=== PATIENT | female | born 1960 | race Caucasian/White ===

== ENCOUNTER → 2016-05-27 | Outpatient (CLI) | payer OTHER ==
[~2016-05-27] MED LIST: BENZ100C18 PO; HYDR-5688 PO; HYDR25TA4 PO; LEVO-366 PO; LEVO50TA6 PO; LEVO75TA5 PO; LEVO88TA PO; LISI-526 PO; LISI-725 PO; POTA-327 PO; POTA10CA28 PO
[2016-05-27 14:44] LABS: URINE APPEARANCE CLEAR (CLEAR); URINE BILIRUBIN NEG (NEG); URINE COLOR YELLOW; URINE NITRITE NEG (NEG); URINE PH 6.5 (4.5-7.5); UROBILINOGEN NEG (NEG)
[2016-05-27 14:50] LABS: MANUAL MICROSCOPIC REQUIRED? NO; REVIEW REQ? NO
[2016-05-28 06:00] LABS: ESTIMATED AVERAGE GLUCOSE 108 mg/dl; HA1C FLAG Normal (Normal)
== END | disposition home or self-care (01) ==
LOC: C.LAB1850 12:35
PROVIDERS: ATTEND Nurse Practitioner Adult Health
DX: N93.8 Other specified abnormal uterine and vaginal bleeding (principal); R73.01 Impaired fasting glucose; Z11.59 Encounter for screening for other viral diseases; R31.29 Other microscopic hematuria

== ENCOUNTER → 2016-06-21 | Day surgery (SDC) | payer OTHER ==
[2016-05-30 14:32] VITALS: Ht 175.3 cm; Wt 91.8 kg
[~2016-06-21] VITALS: Ht 175.3 cm; Wt 91.8 kg
[~2016-06-21] MED LIST changes: +ATROPINE SULFATE 0.1 MG/ML 5ML SYR IV PRN; +BUPIVACAINE/EPINEPHRINE 0.5% MPF 1:200,000 30 ML VIAL ONE; +CEFAZOLIN 2000 MG/60 ML D5W IV SCH; +CLINDAMYCIN 600MG IV SCH; +DEXAMETHASONE SOD INJ 4 MG/ML VIAL ONE; +EpHEDrine SULFATE INJ 50 MG/ML AMP IV PRN; +FENTANYL CITRATE INJ 50 MCG/1 ML 2 ML VIAL ONE; +HYDROCODONE/ACETAMOPHEN 5/325MG TAB PO PRN; +HYDROmorphone INJ 0.5 MG/0.5 ML SYR ONE; +IBUPROFEN 600 MG TAB PO PRN; +LACTATED RINGER'S 1000ML 1,000 ML IV SCH; -LEVO50TA6 PO; +LIDOCAINE HCL 2% 2 ML VIAL (20MG/ML) ONE; -LISI-725 PO; +MIDAZOLAM HCL 1 MG/ML 2ML VIAL ONE; +NURSING VERBAL MED ORDER ONE; +ONDANSETRON INJ 2 MG/ML 2 ML VIAL IV PRN; +ONDANSETRON INJ 2 MG/ML 2 ML VIAL ONE; +PROPOFOL IV EMULSION 10 MG/ML 20 ML VIAL IV ONE; +SODIUM CHLORIDE 0.9% 1000ML 1,000 ML IV SCH
--- NOTE | 2016-06-21 06:53 | History & Physical Bridge Note ---
H&P Re-Evaluation Bridge Note: I have examined the patient, reviewed the History & Physical and in the interval since the performance of the History & Physical I have noted the following changes of clinical significance: No changes noted
--- NOTE | 2016-06-21 08:05 | Discharge Instructions-SurgCtr ---
Discharge Instructions Date of Service Jun 21, 2016. Visit Reason for Visit: Right Inguinal Region Mass Discharge Discharge Diagnosis / Problem: groin lipoma Discharge Goals Goal(s): Decrease discomfort, Diagnostic testing Activity Recommendations Activity Limitations: resume your previous activity Exercise/Sports Limitations: as tolerated May Resume Sexual Activity: when tolerated Shower/Bathe: no limitations Anesthesia . Post Anesthesia Instructions: If you have had General Anesthesia or IV Sedation: * Do not drive today. * Resume driving when surgeon permits. * Do not make important decisions or sign legal documents today. * Call surgeon for: 1. Temperature elevations greater than 101 degrees F. 2. Uncontrollable pain. 3. Excessive bleeding. 4. Persistent nausea and vomiting. 5. Medication intolerance (nausea, vomiting or rash). * For nausea and vomiting use only clear liquids such as: tea, soda, bouillon until nausea subsides, then gradually increase diet as tolerated. * If you have any concerns or questions, call your surgeon's office. If physician is unavailable and it is an emergency, call 911 or go to the nearest emergency room. . Diet Recommendations Home Diet: no limitations Procedures Procedures Performed: Right Groin Mass Excision Pending Studies Studies pending at discharge: yes List of pending studies: path report Medical Emergencies . Who to Call and When: Medical Emergencies: If at any time you feel your situation is an emergency, please call 911 immediately. . Non-Emergent Contact Non-Emergency issues call your: Primary Care Provider, Surgeon Call Non-Emergent contact if: temperature is above 101, wound has increased drainage, wound has increased redness, wound has increased pain . . "Provider Documentation" section prepared by Fausto Mendoza.
--- NOTE | 2016-06-21 08:10 | Medical Student: [facility] ---
Immediate Operative Summary Operative Date Jun 21, 2016. Pre-Operative Diagnosis right groin mass Post-Operative Diagnosis same as above Procedure(s) Performed excision of right groin mass Surgeon Dr. Mendoza Health Program Manager Surgeon(s) none Findings lipoma in right groin area, specifically the right hypogastric region of abd Specimens A. lipoma Anesthesia general Complication(s) None Disposition Recovery Room / PACU
[2016-06-21] MEDS: FENTANYL CITRATE INJ 50 MCG/1 ML 2 ML VIAL IV PRN ×2 (08:16→08:21)
[2016-06-21] MEDS: HYDROmorphone INJ 1 MG/ML SYR IV PRN ×2 (08:27→08:38)
--- NOTE | 2016-06-21 08:27 | OPERATIVE REPORT ---
DATE OF OPERATION: 06/21/2016 PREOPERATIVE DIAGNOSIS: Right groin mass. POSTOPERATIVE DIAGNOSIS: Large lipoma of the right groin on the mons pubis. PROCEDURE: Excision of large groin lipoma with primary closure. SURGEON: Dr. Mendoza. ESTIMATED BLOOD LOSS: 5 mL. COMPLICATIONS: No immediate. ANESTHESIA: General laryngeal mask airway. OPERATIVE NOTE: After informed consent was obtained, the patient was taken to the operating suite, placed in supine position. After successful placement of laryngeal mask airway the groin was shaved and sterilely prepped and draped in usual fashion. A horizontal incision directly over the palpable mass was made with 15 blade scalpel and carried down through the soft tissue using electrocautery. We immediately encountered a large lipoma and mass in the superficial tissue. I was able to use primarily blunt dissection and small amounts of cautery to completely come around the capsule and excise the lipoma in 1 large piece. It measured approximately 4 cm. We controlled any bleeding points using electrocautery. We thoroughly irrigated the wound and closed it in multiple layers using 2-0 Vicryl for deep layers, 3-0 Vicryl for mid layers and 4-0 Monocryl for the skin. Some Marcaine was injected around the area for postoperative analgesia and skin glue used as a dressing. The patient was awakened, extubated, and transferred to recovery in stable condition. I attest to the content of the Intraoperative Record and any orders documented therein. Any exceptio ns are noted below.
[2016-06-21 09:03] VITALS: TEMP 36.7
--- NOTE | 2016-06-21 09:28 | Anesthesiology Progress Note ---
Anesthesia Post Op Note Date & Time Jun 21, 2016 at 09:28 Vital Signs Pain Intensity: 5 Vital Signs Past 12 Hours Date Time Temp Pulse Resp B/P Pulse Ox O2 Delivery O2 Flow Rate FiO2 06/21/16 08:52 94 14 98 06/21/16 08:52 36.4 92 14 06/21/16 08:50 123/91 06/21/16 08:47 98 13 99 06/21/16 08:47 98 13 06/21/16 08:45 140/86 06/21/16 08:42 92 13 100 06/21/16 08:42 95 13 06/21/16 08:40 142/86 06/21/16 08:37 93 13 06/21/16 08:37 94 13 100 06/21/16 08:35 144/88 06/21/16 08:32 97 16 100 06/21/16 08:32 96 16 06/21/16 08:30 133/83 06/21/16 08:27 98 19 100 06/21/16 08:27 98 19 06/21/16 08:25 130/84 06/21/16 08:22 101 13 06/21/16 08:22 99 13 100 06/21/16 08:20 144/90 06/21/16 08:17 102 17 100 06/21/16 08:17 104 17 06/21/16 08:15 147/84 06/21/16 08:12 102 14 100 06/21/16 08:12 103 14 06/21/16 08:10 126/80 06/21/16 08:07 36.4 106 16 118/79 100 Mask 6 06/21/16 08:07 108 06/21/16 08:07 108 118/74 100 06/21/16 06:37 36.5 110 20 165/90 99 Room Air Notes Mental Status: alert / awake / arousable, participated in evaluation Pt Amnestic to Procedure: Yes Nausea / Vomiting: adequately controlled Pain: adequately controlled, improving with treatment Airway Patency, RR, SpO2: stable & adequate BP & HR: stable & adequate Hydration State: stable & adequate Anesthetic Complications: no major complications apparent
[2016-06-21 09:55] VITALS: BP 147/95; PULSE 93; O2SAT 98
== END | disposition home or self-care (01) ==
LOC: X.SURG 06:01
PROVIDERS: ATTEND Surgery
DX: D17.39 Benign lipomatous neoplasm of skin and subcutaneous tissue of other sites (principal); N93.8 Other specified abnormal uterine and vaginal bleeding; I10 Essential (primary) hypertension; E03.9 Hypothyroidism, unspecified; Z98.890 Other specified postprocedural states

== ENCOUNTER → 2016-06-28 | Outpatient (CLI) | payer OTHER ==
[~2016-06-28] MED LIST changes: -ATROPINE SULFATE 0.1 MG/ML 5ML SYR IV PRN; -BUPIVACAINE/EPINEPHRINE 0.5% MPF 1:200,000 30 ML VIAL ONE; -CEFAZOLIN 2000 MG/60 ML D5W IV SCH; -CLINDAMYCIN 600MG IV SCH; -DEXAMETHASONE SOD INJ 4 MG/ML VIAL ONE; -EpHEDrine SULFATE INJ 50 MG/ML AMP IV PRN; -FENTANYL CITRATE INJ 50 MCG/1 ML 2 ML VIAL ONE; -HYDROCODONE/ACETAMOPHEN 5/325MG TAB PO PRN; -HYDROmorphone INJ 0.5 MG/0.5 ML SYR ONE; -IBUPROFEN 600 MG TAB PO PRN; -LACTATED RINGER'S 1000ML 1,000 ML IV SCH; -LIDOCAINE HCL 2% 2 ML VIAL (20MG/ML) ONE; -MIDAZOLAM HCL 1 MG/ML 2ML VIAL ONE; -NURSING VERBAL MED ORDER ONE; -ONDANSETRON INJ 2 MG/ML 2 ML VIAL IV PRN; -ONDANSETRON INJ 2 MG/ML 2 ML VIAL ONE; -PROPOFOL IV EMULSION 10 MG/ML 20 ML VIAL IV ONE; -SODIUM CHLORIDE 0.9% 1000ML 1,000 ML IV SCH
== END | disposition home or self-care (01) ==
LOC: C.PAPS 10:41
PROVIDERS: ATTEND Obstetrics & Gynecology
DX: Z01.419 Encounter for gynecological examination (general) (routine) without abnormal findings (principal)

== ENCOUNTER → 2016-07-11 | Outpatient (CLI) | payer OTHER ==
[2016-07-11 15:12] LABS: HEMATOCRIT 40.7 % (37-47); MEAN CELL VOLUME 86.4 fL (80-100); MEAN CORPUSCULAR HEMOGLOBIN 29.9 pg (25-34); MEAN CORPUSCULAR HGB CONC 34.6 g/dl (32-36); MEAN PLATELET VOLUME 10.9 fL (7.4-10.4); PLATELET COUNT 226 K/uL (130-400); RED BLOOD COUNT 4.71 M/uL (4.2-5.4); WHITE BLOOD COUNT 7.72 K/uL (4.8-10.8)
== END | disposition home or self-care (01) ==
LOC: C.LAB1850 14:16
PROVIDERS: ATTEND Obstetrics & Gynecology
DX: N92.6 Irregular menstruation, unspecified (principal)

== ENCOUNTER → 2016-07-11 | Outpatient (CLI) | payer OTHER ==
--- NOTE | 2016-07-15 15:16 | MAMMOGRAPHY REPORT ---
BILATERAL DIGITAL SCREENING MAMMOGRAM TOMOSYNTHESIS WITH CAD: 07/11/2016 CLINICAL HISTORY: Routine screening. Patient has no complaints. TECHNIQUE: Breast tomosynthesis in addition to standard 2D mammography was performed. Current study was also evaluated with a Computer Aided Detection (CAD) system. COMPARISON: Comparison is made to exam dated: Outside mammograms dated 07/10/2007 and 04/10/2015. BREAST COMPOSITION: The tissue of both breasts is heterogeneously dense, which may obscure small ma sses. FINDINGS: No suspicious masses, calcifications, or areas of architectural distortion are noted in e ither breast. There has been no significant interval change compared to prior exams. Oval circumscr ibed benign-appearing mass within the right upper inner quadrant and lobulated mass in the left uppe r inner quadrant posteriorly are stable dating back to the 2007 exam and considered benign given tatiana g-term stability. Scattered bilateral benign-appearing calcifications are again noted. IMPRESSION: ACR BI-RADS CATEGORY 2: BENIGN There is no mammographic evidence of malignancy. A 1 year screening mammogram is recommended. The p atient will receive written notification of the results. Approximately 10% of breast cancers are not detected with mammography. A negative mammographic repor t should not delay biopsy if a clinically suggestive mass is present. Shirlene Delgado M.D. ah/:07/12/2016 16:25:23 Exercise Physiology Professor: Latia ORTIZ)(M), [facility] letter sent: Normal 1/2 BI-RADS Code: ACR BI-RADS Category 2: Benign
== END | disposition home or self-care (01) ==
LOC: C.MAMM 13:39
PROVIDERS: ATTEND Obstetrics & Gynecology
DX: Z12.31 Encounter for screening mammogram for malignant neoplasm of breast (principal)

== ENCOUNTER → 2016-09-11 | Day surgery (SDC) | payer OTHER ==
[2016-08-21 15:07] VITALS: Ht 170.2 cm; Wt 90.5 kg
[~2016-09-11] VITALS: Ht 170.2 cm; Wt 90.5 kg
[~2016-09-11] MED LIST changes: +ATROPINE SULFATE 0.1 MG/ML 5ML SYR IV PRN; +DEXAMETHASONE SOD INJ 4 MG/ML VIAL ONE; +FENTANYL CITRATE INJ 50 MCG/1 ML 2 ML VIAL IV PRN; +FENTANYL CITRATE INJ 50 MCG/1 ML 2 ML VIAL ONE; -HYDR-5688 PO; +KETOROLAC TROMETHAMINE 30 MG/ML VIAL IV. PRN; +KETOROLAC TROMETHAMINE 30 MG/ML VIAL ONE; +LABETALOL HCL IV 5 MG/ML 20ML IV ONE; +LABETALOL HCL IV 5 MG/ML 20ML IV PRN; +LACTATED RINGER'S 1000ML 1,000 ML IV SCH; -LEVO75TA5 PO; +LIDOCAINE HCL 2% 2 ML VIAL (20MG/ML) ONE; +MIDAZOLAM HCL 1 MG/ML 2ML VIAL ONE; +NURSING VERBAL MED ORDER ONE; +ONDANSETRON INJ 2 MG/ML 2 ML VIAL IV PRN; +ONDANSETRON INJ 2 MG/ML 2 ML VIAL ONE; +OXYCODONE/ACETAMINOPHEN 5-325 TAB PO PRN; +PHENYLEPHRINE HCL INJ 10 MG/ML VIAL ONE; +PROMETHAZINE HCL INJ 12.5 MG in SODIUM CHLORIDE 0.9% 50ML 50 ML IV PRN; +PROMETHAZINE HCL INJ 25 MG in SODIUM CHLORIDE 0.9% 50ML 50 ML IV PRN; +PROPOFOL IV EMULSION 10 MG/ML 20 ML VIAL IV ONE; +SODIUM CHLORIDE 0.9% 1000ML 1,000 ML IV SCH
--- NOTE | 2016-09-11 15:32 | [facility] Post Operative Brief Note ---
Immediate Operative Summary Operative Date Sep 11, 2016. Pre-Operative Diagnosis Dysfunctional Uterine Bleeding Post-Operative Diagnosis same Procedure(s) Performed Dilatation And Curettage, Hysteroscopy, Polypectomy Surgeon Dr. Heather Mcwilliams Automotive Project Engineer Surgeon(s) SHAKIR Brady Estimated Blood Loss less than 5cc Findings Large posterior endometrial polyp, small anterior polyp. Bilateral tubal ostia visualized. Specimens A. Endometrial Curettings Drains Bladder drained prior to procedure Anesthesia General Complication(s) None Disposition Recovery Room / PACU
--- NOTE | 2016-09-11 15:39 | Discharge Instructions-SurgCtr ---
Discharge Instructions Date of Service Sep 11, 2016. Visit Reason for Visit: Dysfunctional Uterine Bleeding Discharge Discharge Diagnosis / Problem: Endometrial polyps Discharge Goals Goal(s): Diagnostic testing, Therapeutic intervention Activity Recommendations Activity Limitations: per Instructions/Follow-up section Anesthesia . Post Anesthesia Instructions: If you have had General Anesthesia or IV Sedation: * Do not drive today. * Resume driving when surgeon permits. * Do not make important decisions or sign legal documents today. * Call surgeon for: 1. Temperature elevations greater than 101 degrees F. 2. Uncontrollable pain. 3. Excessive bleeding. 4. Persistent nausea and vomiting. 5. Medication intolerance (nausea, vomiting or rash). * For nausea and vomiting use only clear liquids such as: tea, soda, bouillon until nausea subsides, then gradually increase diet as tolerated. * If you have any concerns or questions, call your surgeon's office. If physician is unavailable and it is an emergency, call 911 or go to the nearest emergency room. . Instructions / Follow-Up Instructions / Follow-Up ACTIVITY RECOMMENDATIONS: * Avoid tampons, douching, hot tubs, pools, and intercourse until bleeding has stopped. * May shower as usual. * No strenuous activity for 24-48 hours. After 24-48 hours, you may do anything you feel like doing (driving and sports are okay). SPECIAL CARE INSTRUCTIONS: Special Diet: * Mild nausea may occur in the immediate post-operative period. * Take clear liquids such as tea, cola or bouillon until all nausea has subsided; you may then resume your normal diet. Special Care: * Light bleeding and vaginal spotting can last from a few days to 3-4 weeks. Call your doctor if bleeding becomes heavier than the heaviest part of your period. * Check your temperature twice a day for one week. If it goes above 100.4 degrees Fahrenheit (38.0 Celsius), notify your doctor. * Call your doctor's office for an appointment for 6 weeks after your surgery. FOLLOW-UP VISIT: Call your doctor's office for an appointment for 6 weeks after your surgery. Diet Recommendations Home Diet: resume previous diet Procedures Procedures Performed: Dilatation And Curettage, Hysteroscopy, Polypectomy Pending Studies Studies pending at discharge: yes List of pending studies: path Medical Emergencies . Who to Call and When: Medical Emergencies: If at any time you feel your situation is an emergency, please call 911 immediately. . Non-Emergent Contact Non-Emergency issues call your: Primary Care Provider, Grain Drier Operator . . "Provider Documentation" section prepared by Ashlee Mcwilliams. .
--- NOTE | 2016-09-11 15:51 | OPERATIVE REPORT ---
DATE OF OPERATION: 09/11/2016 PREOPERATIVE DIAGNOSIS: Dysfunctional uterine bleeding. POSTOPERATIVE DIAGNOSIS: Same plus endometrial polyps. PROCEDURES PERFORMED: 1. Dilation and curettage. 2. Hysteroscopy. 3. Polypectomy with MyoSure device. SURGEON: Dr. Ashlee Mcwilliams. ELECTRONICS ENGINEERING TECHNICIAN: VARSHA Brady. ESTIMATED BLOOD LOSS: Less than 5 mL. FINDINGS: Large posterior polyp, small anterior polyp. Bilateral tubal ostia visualized. SPECIMENS: Endometrial curettings. DRAINS: Bladder drained prior to procedure. ANESTHESIA: General. COMPLICATIONS: None. DISPOSITION: Stable and good to recovery room PACU. INDICATIONS FOR PROCEDURE: The patient is a 55-year-old female with longstanding history of abnormal uterine bleeding. Saline sonogram showed multiple endometrial masses and she elected to proceed with surgery. DESCRIPTION OF PROCEDURE: The patient was seen in the preoperative holding area where risks, benefits, alternatives to surgery were reviewed. She elected to proceed with surgery. Informed consent had previously been obtained in the office. She was taken to the operating room where general anesthesia was introduced, she was placed in the dorsal lithotomy position with feet in candy cane stirrups. She was prepared and draped in the usual sterile fashion. A timeout was confirmed. Her bladder was drained. A weighted speculum was placed in the vagina. The cervix was visualized and the anterior os was grasped with a single tooth tenaculum. The uterus was sounded and the cervix was sequentially dilated to admit the MyoSure hysteroscope. The hysteroscope was placed and the above noted findings were seen. Using the MyoSure device, the polypectomy was performed. The device was then withdrawn and a gentle curettage was undertaken with a sharp curette. All curettings were retained to be sent to pathology for further evaluation. All instruments were removed from the vagina. Excellent hemostasis was noted and the patient was awoken from anesthesia. She went to the recovery room in stable and good condition. I attest to the content of the Intraoperative Record and any orders documented therein. Any exception s are noted below.
[2016-09-11 16:11] VITALS: TEMP 36.9
--- NOTE | 2016-09-11 16:24 | Anesthesia Progress Nt - [facility] ---
Anesthesia Post Op Note Date & Time Sep 11, 2016 at 16:24 Vital Signs Pain Intensity: 0 Vital Signs Past 12 Hours Date Time Temp Pulse Resp B/P (MAP) Pulse Ox O2 Delivery O2 Flow Rate FiO2 09/11/16 16:11 36.9 96 16 142/84 (103) 97 Room Air 09/11/16 15:47 92 21 09/11/16 15:47 92 21 100 09/11/16 15:46 142/85 09/11/16 15:46 36.7 94 16 142/85 98 Room Air 09/11/16 15:42 98 17 100 09/11/16 15:42 98 17 09/11/16 15:41 132/75 09/11/16 15:37 96 14 100 09/11/16 15:37 96 14 09/11/16 15:36 116/88 09/11/16 15:32 99 24 100 09/11/16 15:32 99 24 09/11/16 15:31 127/96 09/11/16 15:27 100 19 09/11/16 15:27 100 19 100 09/11/16 15:26 114/68 09/11/16 15:23 36.6 101 12 122/69 97 Mask 6 09/11/16 15:22 101 29 09/11/16 15:22 100 29 122/69 96 09/11/16 12:07 37.3 105 18 152/101 (118) 100 Room Air Notes Mental Status: alert / awake / arousable, participated in evaluation Pt Amnestic to Procedure: Yes Nausea / Vomiting: adequately controlled Pain: adequately controlled Airway Patency, RR, SpO2: stable & adequate BP & HR: stable & adequate Hydration State: stable & adequate Anesthetic Complications: no major complications apparent
[2016-09-11 16:29] VITALS: BP 149/89; PULSE 93; O2SAT 98
== END | disposition home or self-care (01) ==
LOC: X.SURG 11:44
PROVIDERS: ATTEND Obstetrics & Gynecology
DX: N84.0 Polyp of corpus uteri (principal); I10 Essential (primary) hypertension; E03.9 Hypothyroidism, unspecified; Z79.899 Other long term (current) drug therapy

== ENCOUNTER → 2016-09-30 | Outpatient (CLI) | payer OTHER ==
[~2016-09-30] MED LIST changes: -ATROPINE SULFATE 0.1 MG/ML 5ML SYR IV PRN; -DEXAMETHASONE SOD INJ 4 MG/ML VIAL ONE; -FENTANYL CITRATE INJ 50 MCG/1 ML 2 ML VIAL IV PRN; -FENTANYL CITRATE INJ 50 MCG/1 ML 2 ML VIAL ONE; -KETOROLAC TROMETHAMINE 30 MG/ML VIAL IV. PRN; -KETOROLAC TROMETHAMINE 30 MG/ML VIAL ONE; -LABETALOL HCL IV 5 MG/ML 20ML IV ONE; -LABETALOL HCL IV 5 MG/ML 20ML IV PRN; -LACTATED RINGER'S 1000ML 1,000 ML IV SCH; -LIDOCAINE HCL 2% 2 ML VIAL (20MG/ML) ONE; -MIDAZOLAM HCL 1 MG/ML 2ML VIAL ONE; -NURSING VERBAL MED ORDER ONE; -ONDANSETRON INJ 2 MG/ML 2 ML VIAL IV PRN; -ONDANSETRON INJ 2 MG/ML 2 ML VIAL ONE; -OXYCODONE/ACETAMINOPHEN 5-325 TAB PO PRN; -PHENYLEPHRINE HCL INJ 10 MG/ML VIAL ONE; -PROMETHAZINE HCL INJ 12.5 MG in SODIUM CHLORIDE 0.9% 50ML 50 ML IV PRN; -PROMETHAZINE HCL INJ 25 MG in SODIUM CHLORIDE 0.9% 50ML 50 ML IV PRN; -PROPOFOL IV EMULSION 10 MG/ML 20 ML VIAL IV ONE; -SODIUM CHLORIDE 0.9% 1000ML 1,000 ML IV SCH
== END | disposition home or self-care (01) ==
LOC: C.LABSPEC 15:03
PROVIDERS: ATTEND Obstetrics & Gynecology
DX: N76.3 Subacute and chronic vulvitis (principal)

== ENCOUNTER 2016-11-19 09:40 | Emergency (ER) | payer OTHER ==
[~2016-11-19] VITALS: Ht 175.3 cm; Wt 90.2 kg
[~2016-11-19 09:40] MED LIST changes: -BENZ100C18 PO; -HYDR25TA4 PO; -LEVO-366 PO; -LEVO88TA PO; -LISI-526 PO; -POTA10CA28 PO
[2016-11-19 09:58] VITALS: Ht 175.3 cm; Wt 90.2 kg
[2016-11-19] MEDS ORDERED: POTA10CA28 PO (10:34)
[2016-11-19] MEDS ORDERED: SODIUM CHLORIDE 0.9% 1000ML 2,000 ML IV STA (11:18)
[2016-11-19] MEDS ORDERED: ALBUTEROL 0.083% NEBU SOLN 3 ML VIAL INH STA (11:27)
[2016-11-19] MEDS ORDERED: BENZONATATE 100MG CAP PO ONE (11:30)
[2016-11-19 11:39] LABS: PREG INTERNAL NEGATIVE QC NEG CLEAR BACKGROUND; PREG INTERNAL POSITIVE QC POS CONTROL LINE
[2016-11-19 11:41] LABS: URINE APPEARANCE TURBID (CLEAR); URINE BILIRUBIN NEG (NEG); URINE COLOR YELLOW; URINE EPITHELIAL CELL AUTO >30 /lpf (0-5); URINE NITRITE NEG (NEG); URINE SPECIFIC GRAVITY 1.017 (1.000-1.030); UROBILINOGEN NEG (NEG); ZZUR CULT IF INDIC CLEAN CATCH YES
[2016-11-19 11:47] LABS: REVIEW REQ? YES
[2016-11-19 11:48] LABS: MANUAL MICROSCOPIC REQUIRED? NO
[2016-11-19 12:00] LABS: BASO % 0.3 %; BASO ABS # 0.01 K/uL (0-0.2); COMPLETE YES; HEMATOCRIT 38.6 % (37-47); IG% 0.3 %; LYMPH % 32.9 %; LYMPH ABS # 0.96 K/uL (1.2-3.4); MEAN CELL VOLUME 83.4 fL (80-100); MEAN PLATELET VOLUME 10.3 fL (7.4-10.4); MONO % 17.1 %; NEUT % 49.4 %; PLATELET COUNT 169 K/uL (130-400); RED BLOOD COUNT 4.63 M/uL (4.2-5.4); WHITE BLOOD COUNT 2.92 K/uL (4.8-10.8)
[2016-11-19 12:20] LABS: ALT/SGPT 30 U/L (12-78); BLOOD UREA NITROGEN 14 mg/dl (7-18); CARBON DIOXIDE 28 mmol/L (21-32); CHLORIDE 101 mmol/L (98-107); GLUCOSE 88 mg/dl (70-99); POTASSIUM 3.7 mmol/L (3.5-5.1); SODIUM 135 mmol/L (136-145)
[2016-11-19 12:23] LABS: ALKALINE PHOSPHATASE 80 U/L (45-117); AST/SGOT 31 U/L (15-37)
--- NOTE | 2016-11-19 12:29 | DIAGNOSTIC IMAGING REPORT ---
PA CHEST WITH ABDOMINAL SERIES CLINICAL HISTORY: Cough FINDINGS: A PA chest radiograph is compared to study dated 11/22/2014 correlation is made with chest CT dated 11/19/2014.. The cardiomediastinal silhouette is unremarkable. The lungs appear hyperinflated. Biapical scarring and chronic interstitial thickening are similar to previous. There is no airspace consolidation or pleural effusion. No pneumothorax is seen. The skeletal structures are osteopenic. The bony thorax is grossly intact. Supine and erect abdominal radiographs are correlated with abdominal CT dated 02/10/2015. There is a nonobstructed abdominal bowel gas pattern. No evidence of intraperitoneal free air is seen. There are no abnormal abdominal calcifications. The lumbosacral spine and bony pelvis appear intact. IMPRESSION: 1. No active disease in the chest. 2. Nonobstructed abdominal bowel gas pattern. Electronically signed by: Lg Healy M.D. 11/19/2016 12:28 PM Dictated Date/Time: 11/19/2016 12:26 PM
[2016-11-19] MEDS ORDERED: LEVO-366 PO (13:00)
[2016-11-19] MEDS ORDERED: BENZ100C18 PO (13:00)
[2016-11-19 13:16] VITALS: BP 130/77; PULSE 90; TEMP 37; O2SAT 96
[2016-11-19] MEDS ORDERED: HYDR25TA4 PO (14:32)
[2016-11-19] MEDS ORDERED: LISI-526 PO (14:32)
[2016-11-19] MEDS ORDERED: LEVO88TA PO (15:05)
--- NOTE | 2016-11-19 16:47 | EMERGENCY ROOM VISIT NOTE ---
History Report prepared by Aniyah: Rafael Moreland Under the Supervision of: Tam PetersonO. First contact with patient: 11:10 Chief Complaint: FLU LIKE SX Stated Complaint: FLU History of Present Illness The patient is a 56 year old female who presents to the Emergency Room with complaints of a persistent illness beginning five days ago. Her symptoms include vomiting, fatigue, productive cough, runny nose and fevers. She states that her symptoms began with fatigue. She then progressed to have a productive cough and runny nose and sore throat. She had a fever of 101 yesterday. Prior and since then she has had no fevers. Her cough produces a dark sputum. She notes that her currently has similar symptoms. The patient states that she had one episode of diarrhea as well. She has not seen her PCP for her symptoms. The patient denies any urinary symptoms, headache, rashes, weakness, or abdominal pain. Source of History: patient Onset: Five days ago Quality: other (illness) Timing: other (persistent) Associated Symptoms: + fevers (101 degrees), + nausea, + vomiting, + fatigue , No headache, No urinary symptoms, No weakness, No rash Note: Additional symptoms: runny nose. Review of Systems See HPI for pertinent positives & negatives. A total of 10 systems reviewed and were otherwise negative. Past Medical & Surgical Medical Problems: (1) Bladder infection (2) HTN (hypertension) (3) Kidney stone Surgical Problems: (1) History of cholecystectomy Family History Hypertension Social History Smoking Status: Never Smoker Drug Use: none Marital Status: Housing Status: lives with family Occupation Status: unemployed Current/Historical Medications Scheduled Benzonatate (Tessalon Perles), 100 MG PO TID Hydrochlorothiazide (Hctz), 25 MG PO QAM Levofloxacin (Levaquin), 500 MG PO DAILY Levothyroxine Sodium (Synthroid), 88 MCG PO QAM Lisinopril (Prinivil), 30 MG PO QAM Potassium Chloride (Micro-K Ext Rel), 10 MEQ PO QAM Allergies Coded Allergies: Iodinated Diagnostic Agents (Verified Allergy, Unknown, HIVES, 11/19/16) Metronidazole (Verified Allergy, Unknown, GI SYMPTOMS, 11/19/16) Penicillins (Verified Allergy, Unknown, HIVES, 11/19/16) Physical Exam Vital Signs Date Time Temp Pulse Resp B/P (MAP) Pulse Ox O2 Delivery O2 Flow Rate FiO2 11/19/16 13:16 37.0 90 18 130/77 96 11/19/16 11:45 99 20 138/81 97 Nebulizer 11/19/16 09:58 37.0 105 18 137/86 94 Room Air Physical Exam GENERAL: sitting up in bed, non-productive cough, alert, well appearing, well nourished, no distress, non-toxic EYE EXAM: normal conjunctiva, PERRL and EOM's grossly intact EARS: TMs with bilateral cerumen impacts. OROPHARYNX: no exudate, no erythema, lips, buccal mucosa, and tongue normal and mucous membranes are moist. NECK: supple, no nuchal rigidity, no adenopathy, non-tender. No nuchal rigidity. LUNGS: Normal chest wall mechanics. Faint wheezing bilaterally. HEART: no murmurs, S1 normal and S2 normal ABDOMEN: abdomen soft, non-tender, normo-active bowel sounds, no masses, no rebound or guarding. Old scar over the RUQ noted. BACK: Back is symmetrical on inspection and there is no deformity, no midline tenderness, no CVA tenderness. SKIN: no rashes and no bruising UPPER EXTREMITIES: upper extremities are grossly normal. LOWER EXTREMITIES: No pitting edema. NEURO EXAM: Normal sensorium, cranial nerves II-XII grossly intact, normal speech, no gross weakness of arms, no gross weakness of legs. Medical Decision & Procedures ER Provider Diagnostic Interpretation: Radiology results as stated below per my review and the radiologist's interpretation: PA CHEST WITH ABDOMINAL SERIES FINDINGS: A PA chest radiograph is compared to study dated 11/22/2014 correlation is made with chest CT dated 11/19/2014.. The cardiomediastinal silhouette is unremarkable. The lungs appear hyperinflated. Biapical scarring and chronic interstitial thickening are similar to previous. There is no airspace consolidation or pleural effusion. No pneumothorax is seen. The skeletal structures are osteopenic. The bony thorax is grossly intact. Supine and erect abdominal radiographs are correlated with abdominal CT dated 02/10/2015. There is a nonobstructed abdominal bowel gas pattern. No evidence of intraperitoneal free air is seen. There are no abnormal abdominal calcifications. The lumbosacral spine and bony pelvis appear intact. IMPRESSION: 1. No active disease in the chest. 2. Nonobstructed abdominal bowel gas pattern. Electronically signed by: Lg Healy M.D. 11/19/2016 12:28 PM Laboratory Results 11/19/16 11:40 Red Blood Count 4.63, Mean Corpuscular Volume 83.4, Mean Corpuscular Hemoglobin 30.0, Mean Corpuscular Hemoglobin Concent 36.0, Mean Platelet Volume 10.3, Neutrophils (%) (Auto) 49.4, Lymphocytes (%) (Auto) 32.9, Monocytes (%) (Auto) 17.1, Eosinophils (%) (Auto) 0.0, Basophils (%) (Auto) 0.3, Neutrophils # (Auto ) 1.44, Lymphocytes # (Auto) 0.96, Monocytes # (Auto) 0.50, Eosinophils # (Auto ) 0.00, Basophils # (Auto) 0.01 11/19/16 11:40 Test 11/19/16 10:41 11/19/16 11:40 Urine Color YELLOW Urine Appearance TURBID (CLEAR) Urine pH 6.0 (4.5-7.5) Urine Specific [place] 1.017 (1.000-1.030) Urine Protein TRACE (NEG) Urine Glucose (UA) NEG (NEG) Urine Ketones NEG (NEG) Urine Occult Blood 1+ (NEG) Urine Nitrite NEG (NEG) Urine Bilirubin NEG (NEG) Urine Urobilinogen NEG (NEG) Urine Leukocyte Esterase SMALL (NEG) Urine WBC (Auto) 10-30 /hpf (0-5) Urine RBC (Auto) 0-4 /hpf (0-4) Urine Hyaline Casts (Auto) 1-5 /lpf (0-5) Urine Epithelial Cells (Auto) >30 /lpf (0-5) Urine Bacteria (Auto) 4+ (NEG) Urine Crystals (NONE PRSENT) Urine Pathogenic Casts /lpf (0) Urine Yeast (Auto) (NONE PRSENT) Urine Test NEG (NEG) White Blood Count 2.92 K/uL (4.8-10.8) Red Blood Count 4.63 M/uL (4.2-5.4) Hemoglobin 13.9 g/dL (12.0-16.0) Hematocrit 38.6 % (37-47) Mean Corpuscular Volume 83.4 fL (80-100) Mean Corpuscular Hemoglobin 30.0 pg (25-34) Mean Corpuscular Hemoglobin Concent 36.0 g/dl (32-36) Platelet Count 169 K/uL (130-400) Mean Platelet Volume 10.3 fL (7.4-10.4) Neutrophils (%) (Auto) 49.4 % Lymphocytes (%) (Auto) 32.9 % Monocytes (%) (Auto) 17.1 % Eosinophils (%) (Auto) 0.0 % Basophils (%) (Auto) 0.3 % Neutrophils # (Auto) 1.44 K/uL (1.4-6.5) Lymphocytes # (Auto) 0.96 K/uL (1.2-3.4) Monocytes # (Auto) 0.50 K/uL (0.11-0.59) Eosinophils # (Auto) 0.00 K/uL (0-0.5) Basophils # (Auto) 0.01 K/uL (0-0.2) RDW Standard Deviation 40.4 fL (36.4-46.3) RDW Coefficient of Variation 13.3 % (11.5-14.5) Immature Granulocyte % (Auto) 0.3 % Immature Granulocyte # (Auto) 0.01 K/uL (0.00-0.02) Anion Gap 6.0 mmol/L (3-11) Est Creatinine Clear Calc Drug Dose 84.5 ml/min Estimated GFR () 83.4 Estimated GFR (Non- 72.0 BUN/Creatinine Ratio 16.0 (10-20) Calcium Level 9.0 mg/dl (8.5-10.1) Total Bilirubin 0.3 mg/dl (0.2-1) Direct Bilirubin < 0.1 mg/dl (0-0.2) Aspartate Amino Transf (AST/SGOT) 31 U/L (15-37) Alanine Aminotransferase (ALT/SGPT) 30 U/L (12-78) Alkaline Phosphatase 80 U/L (45-117) Total Protein 7.3 gm/dl (6.4-8.2) Albumin 3.7 gm/dl (3.4-5.0) Lipase 120 U/L (73-393) Influenza Type A Antigen Neg for Influ A (NEG) Influenza Type B Antigen Neg for Influ B (NEG) Laboratory results per my review. Medications Administered Medications (Trade) Dose Ordered Sig/Kwasi Route Start Time Stop Time Status Last Admin Dose Admin Sodium Chloride 2,000 ml @ 999 mls/hr Q2H1M STAT IV 11/19/16 11:18 11/19/16 13:18 DC 11/19/16 11:43 999 MLS/HR Albuterol Sulfate (Ventolin 0.083% 2.5MG/3ML Neb) 2.5 mg NOW STAT INH 11/19/16 11:27 11/19/16 11:28 DC 11/19/16 11:43 2.5 MG Benzonatate (Tessalon Perles Cap) 100 mg NOW ONCE PO 11/19/16 11:30 11/19/16 11:31 DC 11/19/16 11:42 100 MG ED Course ED COURSE: Vital signs were reviewed and showed hypertension The patients medical record was reviewed The above diagnostic studies were performed and reviewed. ED treatments and interventions as stated above. 1111: The patient was evaluated in room B9. A complete history and physical examination was performed. 1118: Ordered Sodium Chloride 2000 ml @ 999 mls/hr IV. 1127: Ordered Ventolin 0.083% 2.5 mg/3 mL Neb 2.5 mg INH. 1130: Ordered Tessalon Perles Cap 100 mg PO. 1300: Upon reevaluation, the patient is resting comfortably. I discussed my findings with the patient and she understands and agrees with the treatment plan. Based on the patients age, coexisting illnesses, exam and lab findings the decision to treat as an outpatient was made. The patient remained stable while under my care. The patient appeared well at the time of discharge. Medical Decision Differential diagnosis: Etiologies such as viral syndrome, otitis, pharyngitis, pneumonia, influenza, meningitis, urinary tract infection, sepsis, bacteremia, as well as others were entertained. Patient is a 56-year-old female who presents the ER with a productive cough, runny nose and sore throat been present the past several days. She is associated nausea and diarrhea. Abdominal exam is benign. CBC was 2.9 without neutropenia. I do favor this is just likely viral. CBC along with BMP, LFTs, bilirubin and lipase is unremarkable. UA was contaminated with multiple epithelial cells. She had no urinary symptoms. was negative. Flu was negative. Chest x-ray shows no infiltrate. With her symptoms I do believe this more consistent with a bronchitis. With the duration and to treat her with Levaquin which would also cover her urine if the culture did come back positive. Patient was updated bedside. She was discharged follow-up with PCP. Discussed with Pt concerning signs and symptoms to watch out for. Pt was instructed to follow up with their PCP and discussed with the patient their option to return to the ED at anytime for persistent or worsening symptoms. The appropriate anticipatory guidance and out-patient management, including indications for return to the emergency department, were explained at length to the patient and understood. Medication Reconcilliation Current Medication List: was personally reviewed by me Blood Pressure Screening Patient's blood pressure: Elevated blood pressure Blood pressure disposition: Elevated BP felt to be situational Impression Primary Impression: Acute bronchitis Scribe Attestation The scribe's documentation has been prepared under my direction and personally reviewed by me in its entirety. I confirm that the note above accurately reflects all work, treatment, procedures, and medical decision making performed by me. Departure Information Dispostion Home / Self-Care Prescriptions Benzonatate (TESSALON PERLES) 100 Mg Cap 100 MG PO TID, #30 CAP Prov: Jeff Rudolph, DO 11/19/16 Levofloxacin (Levaquin) 500 Mg Tab 500 MG PO DAILY for 9 Days, TAB Prov: Jeff Rudolph, DO 11/19/16 Referrals No Doctor, Assigned (PCP) Forms HOME CARE DOCUMENTATION FORM, IMPORTANT VISIT INFORMATION Patient Instructions ED Upper Resp Infec Abx Tx, [facility] Additional Instructions Please follow up with your primary care doctor or if you are a student, [facility] with in the next 24 hours. Any worsening of your symptoms, please return to the ED immediately. This includes any fevers greater than 100.4, worsening pain, chest pain, shortness breath, persistent nausea, vomiting, unable to eat or drink, or any other concerning signs or symptoms from your standpoint. You were found to have a blood pressure greater than 120 systolic over 90 diastolic. Due to the new Medicare guidelines, we are now recommending that you follow up with your primary care doctor in regards to this elevated blood pressure. Problem Qualifiers Primary Impression: Acute bronchitis Bronchitis organism: unspecified organism Qualified Codes: J20.9 - Acute bronchitis, unspecified
== END 2016-11-19 13:10 | disposition home or self-care (01) ==
LOC: C.EDB 09:42
DX: J20.9 Acute bronchitis, unspecified (principal); I10 Essential (primary) hypertension; Z87.442 Personal history of urinary calculi; Z82.49 Family history of ischemic heart disease and other diseases of the circulatory system

== ENCOUNTER → 2016-12-06 | Outpatient (CLI) | payer OTHER ==
[~2016-12-06] MED LIST changes: +HYDR25TA4 PO; +LEVO88TA PO; +LISI-526 PO; -POTA-327 PO; +POTA10CA28 PO
[2016-12-06 12:33] LABS: ESTIMATED AVERAGE GLUCOSE 111 mg/dl; HA1C FLAG Normal (Normal)
[2016-12-06 13:19] LABS: BLOOD UREA NITROGEN 13 mg/dl (7-18); BUN/CREATININE RATIO 17.5 (10-20); CALCIUM 9.4 mg/dl (8.5-10.1); CARBON DIOXIDE 28 mmol/L (21-32); CHLORIDE 104 mmol/L (98-107); CREATININE 0.76 mg/dl (0.60-1.20); GLUCOSE 86 mg/dl (70-99); SODIUM 139 mmol/L (136-145)
[2016-12-06 13:37] LABS: CHOLESTEROL 166 mg/dl (0-200); CHOLESTEROL/HDL RATIO 3.1; HDL CHOLESTEROL 53 mg/dl; LDL CHOLESTEROL CALCULATED 94 mg/dl; TRIGLYCERIDES 94 mg/dl (0-150); VERY LOW DENSITY LIPOPROT CALC 19 mg/dl
== END | disposition home or self-care (01) ==
LOC: C.LABPBG 09:35
PROVIDERS: ATTEND Family Medicine
DX: I10 Essential (primary) hypertension (principal); E03.9 Hypothyroidism, unspecified; E78.5 Hyperlipidemia, unspecified; R73.01 Impaired fasting glucose

== ENCOUNTER → 2017-02-27 | Outpatient (CLI) | payer OTHER | END | disposition home or self-care (01) | LOC: C.PATHSPEC 15:36 | PROVIDERS: ATTEND Obstetrics & Gynecology | DX: N76.3 Subacute and chronic vulvitis (principal) ==

== ENCOUNTER → 2017-07-02 | Outpatient (CLI) | payer OTHER ==
[2017-07-02 13:48] LABS: BLOOD UREA NITROGEN 14 mg/dl (7-18); CALCIUM 9.7 mg/dl (8.5-10.1); CARBON DIOXIDE 27 mmol/L (21-32); CHOLESTEROL 184 mg/dl (0-200); CREATININE 0.86 mg/dl (0.60-1.20); GLUCOSE 93 mg/dl (70-99); SODIUM 136 mmol/L (136-145)
[2017-07-02 13:58] LABS: LDL CHOLESTEROL CALCULATED 106 mg/dl
== END | disposition home or self-care (01) ==
LOC: C.LABPBG 09:26
PROVIDERS: ATTEND Family Medicine
DX: I10 Essential (primary) hypertension (principal); E78.5 Hyperlipidemia, unspecified; E03.9 Hypothyroidism, unspecified

== ENCOUNTER 2021-12-18 21:23 | Observation (INO) ==
[2021-12-18 22:30] LABS: Hematocrit (blood only) 40.3 % (34.1-44.9); Hemoglobin 13.6 g/dl (12.0-16.0); Mean Corpuscular Hemoglobin 29.5 pg (25.0-34.0); Mean Corpuscular Hgb Conc 33.7 g/dL (32.0-36.0); Mean Corpuscular Volume 87.4 fL (80.0-100.0); Mean Platelet Volume 10.6 fL (9.4-12.3); Platelet Count 225 K/uL (130-400); RDW Standard Deviation 41.5 fL (36.4-46.3); Red Blood Count 4.61 M/uL (3.93-5.22); White Blood Count 10.64 K/ul (4.8-10.8)
[2021-12-18 22:31] LABS: Basophils # (auto) 0.08 K/uL (0-0.2); Basophils % (auto) 0.8 %; Eosinophils # (auto) 0.26 K/uL (0-0.50); Eosinophils % (auto) 2.4 %; Immature Granulocytes # (auto) 0.07 K/uL (0.00-0.02); Immature Granulocytes % (auto) 0.7 %; Lymphocytes # (auto) 1.81 K/uL (1.2-3.4); Monocytes # (auto) 0.66 K/uL (0.24-0.82); Monocytes % (auto) 6.2 %; Neutrophils # (auto) 7.76 K/uL (1.4-6.5); Neutrophils % (auto) 72.9 %
[2021-12-18] MEDS ORDERED: FAMOTIDINE 20MG IV PUSH 20 MG/5 ML SYR IV STA (22:32)
[2021-12-18] MEDS ORDERED: SODIUM CHLORIDE 0.9% 1000ML 1,000 ML IV ONE (22:32)
[2021-12-18] MEDS ORDERED: GI COCKTAIL ED USE PO ONE (22:32)
[2021-12-18 22:56] LABS: Albumin Globulin Ratio 1.4 (0.9-2); Albumin Level 4.5 gm/dl (3.4-5.0); BUN Creatinine Ratio 19.5 (10-20); Bilirubin,Total 0.6 mg/dl (0.2-1.0); Calcium 9.7 mg/dl (8.5-10.1); Creatinine Clr Calc Pharmacy 82.7 ml/min; Est GFR (African American) 83.9 ml/min; Est GFR (Non-African American) 72.4 ml/min; Globulin 3.2 gm/dl (2.5-4.0); Potassium 3.8 mmol/L (3.5-5.1); Total Protein 7.7 gm/dl (6.0-8.3); Troponin I High Sensitivity 2.4 pg/ml (0-14)
[2021-12-18 23:01] LABS: Appearance Urine Clear (Clear); Bacteria Urine Automated 2+ (Negative); Bilirubin Urine Negative (Negative); Blood Urine 1+ (Negative); Cast Urine Automated 0 /lpf (0-5); Color Urine Yellow; Epithelial Cell Urine Auto >30 /lpf (0-5); Glucose Urine UA Negative (Negative); Ketones Urine Negative (Negative); Leukocyte Esterase Urine Trace (Negative); Nitrite Urine Negative (Negative); Protein Urine Negative (Negative); Specific Gravity Urine 1.011 (1.000-1.030); Urobilinogen Urine Negative (Negative); pH Urine 6.5 (4.5-7.5)
--- NOTE | 2021-12-19 01:35 | Emergency Department Note ---
History of Present Illness General Chief complaint: Abdominal Pain Stated complaint: R UPPER ABD PAIN, CHILLS Time Seen by Provider: 12/18/21 22:24 History of Present Illness Maximum Pain Intensity: 7 This 61-year-old presents to the ER complaining of epigastric pain for the past day Location: Epigastric Quality: Discomfort Severity: Moderate Duration: Past day Timing: Started yesterday Context: Patient was concerned and came in Modifying factors: better with rest; worse with palpation Patient had her gallbladder removed. Patient denies chest pain, dyspnea, urinary symptoms, fever, chills. Home Medications Medication Instructions Recorded Confirmed Type psyllium 1 packet PO DAILY 01/07/20 12/18/21 History atorvastatin 10 mg tablet 10 mg PO PM #90 tabs 02/12/21 12/18/21 Rx aspirin 81 mg tablet,delayed 81 mg PO QAM #90 tabs 06/05/21 12/18/21 Rx release potassium chloride 20 mEq 20 meq PO DAILY #90 tabs 10/22/21 12/18/21 Rx tablet,extended release lisinopril 40 mg tablet 40 mg PO QAM #90 tabs 11/01/21 12/18/21 Rx triamterene 37.5 1 tab PO QAM #90 tabs 11/07/21 12/18/21 Rx mg-hydrochlorothiazide 25 mg tablet metoprolol tartrate 50 mg tablet 50 mg PO BID #180 tabs 11/19/21 12/18/21 Rx Synthroid 100 mcg tablet 100 mcg PO QAM #90 tabs 12/10/21 12/18/21 Rx (levothyroxine) ciprofloxacin HCl 500 mg tablet 500 mg PO BID #6 tabs 12/19/21 Rx (Cipro) pantoprazole 40 mg tablet,delayed 40 mg PO BID #60 tabs 12/19/21 Rx release Allergies Allergy/AdvReac Type Severity Reaction Status Date / Time Iodinated Contrast Media Allergy Intermediate HIVES Verified 12/18/21 23:46 metronidazole Allergy Intermediate GI SYMPTOMS Verified 12/18/21 23:46 Penicillins Allergy Intermediate HIVES Verified 12/18/21 23:46 Past Med/Surg History Medical History Chronic venous insufficiency Chronic vulvitis Degenerative arthritis of cervical spine Gastroesophageal reflux disease Hx of pleural effusion 2015> pt unaware of details Hyperlipidemia Hypertension Hypothyroidism Internal hemorrhoids Kidney stones Osteoarthritis Surgical History History of cholecystectomy History of tooth extraction S/P D&C (status post dilation and curettage) (2017) D&C/polypectomy, benign pathology Family History Father , age 58 Stroke Coronary heart disease Hypertension Lung cancer Myocardial infarction Ml age 50's S/P CABG x 3 Mother Hypertension Sister Hypertension Brother Hypertension Brother Hypertension Social History Smoking Status: Never smoker Second Hand Exposure: No; Hx Alcohol Use: No Hx Substance Use: No Preferred Language: Turkish Communication Ability: Effective Visual Impairment: No Limitations Hearing Ability: Normal Vacuum Spindle Sander Required: No Beliefs That Will Affect Care: None marital status: Current Living Situation: Spouse Current Living Situation Comment: lives w/ child current occupational status: unemployed How many Children do You have: 1 Feels Safe at Home: Yes Childhood Exposure to Second-Hand Smoke: No caffeine: Yes (coffee 1 cup per day.) during the past year weight has: remained stable Dental Care, Regularly: No Physical Activity Frequency: Does not Exercise Seatbelt Use: always Sunscreen Use: No Assistive Devices: None Review of Systems A total of 10 systems reviewed and were otherwise negative Physical Exam Vital Signs Vital Signs - 24 hr 12/18/21 21:31 12/18/21 22:43 12/19/21 00:14 Temperature 36.9 C Temperature Source Temporal Artery Scan Pulse Rate 99 H Pulse Rate [Finger] 90 89 Respiratory Rate 16 18 18 Blood Pressure 176/97 H Blood Pressure [Right Arm] 147/87 H 161/91 H Blood Pressure Mean 123 Blood Pressure Mean [Right Arm] 107 114 Pulse Oximetry 99 100 Oxygen Delivery Method Room Air Room Air Sepsis Recent Fever Within 48 Hours No Sepsis New/Unexplained Change in Mental Status N/A Sepsis Action Taken by Nursing No Action Required 12/19/21 01:52 Temperature Temperature Source Pulse Rate Pulse Rate [Finger] 98 H Respiratory Rate 14 Blood Pressure Blood Pressure [Right Arm] 171/107 H Blood Pressure Mean Blood Pressure Mean [Right Arm] 128 Pulse Oximetry 99 Oxygen Delivery Method Room Air Sepsis Recent Fever Within 48 Hours Sepsis New/Unexplained Change in Mental Status Sepsis Action Taken by Nursing VITALS: Vitals are noted on the nurse's note and reviewed by myself. Vital signs stable. GENERAL: Pleasant female, in no acute distress, nondiaphoretic, well-developed well-nourished. SKIN: The skin was without rashes, erythema, edema, or bruising. There is no tenting of the skin. Capillary reflex less than 2 seconds. HEAD: Normocephalic atraumatic. EARS: External auditory canals clear, EYES: Pupils equal round and reactive to light and accommodation. Conjunctivae without injection, sclerae without icterus. Extraocular movements intact. NOSE: Patent, turbinates without inflammation or discharge. MOUTH: Mucous membranes moist. Pharynx without erythema or exudate. Uvula midline. Airway patent. Tongue does not deviate. NECK: Supple without nuchal rigidity. No lymphadenopathy. No thyromegaly. Cervical spine is nontender. No JVD. HEART: Regular rate and rhythm LUNGS: Clear to auscultation bilaterally without wheezes, rales or rhonchi. No retractions or accessory muscle use. ABDOMEN: Positive bowel sounds x 4. Normal tympanic percussion. Soft, tender epigastric region, without masses or organomegaly. Akhtar sign negative. No guarding or rebound tenderness. No CVA tenderness MUSCULOSKELETAL: No muscle atrophy, erythema, or edema noted. NEURO: Patient was alert and oriented to person place and time. Normal sensation to light and sharp touch. No focal neurological deficits. Course Administered Medications Discontinued Medications Al Hydrox/Mg Hydrox/Simethicone (Gi Cocktail Ed Use) 1 dose PO ONE ONE Stop: 12/18/21 22:33 Last Admin: 12/18/21 22:45 Dose: 1 dose Documented By: LAWRENCE Famotidine (Famotidine 40 Mg Tablet) 40 mg PO BID PRN PRN Reason: epigastric pain Stop: 01/18/22 05:45 Last Admin: 12/19/21 08:12 Dose: 40 mg Documented By: RAVEN Famotidine (Pepcid 20mg Iv Push) 20 mg in 5 mls @ 2.5 mls/min IV NOW STA Stop: 12/18/21 22:33 Last Admin: 12/18/21 22:45 Dose: 2.5 mls/min Documented By: LAWRENCE Sodium Chloride (Nss 1000ml) 1,000 mls @ 999 mls/hr IV .Q1H1M ONE Stop: 12/18/21 23:32 Last Infusion: 12/18/21 23:47 Dose: 0 mls/hr Documented By: Admin: 12/18/21 22:46 Dose: 999 mls/hr Documented By: LAWRENCE Levothyroxine Sodium (Levothyroxine Sodium 100 Mcg Tablet) 100 mcg PO DAILYBB HUGO Stop: 01/18/22 06:29 Last Admin: 12/19/21 08:13 Dose: 100 mcg Documented By: RAVEN Lisinopril (Lisinopril 40 Mg Tab) 40 mg PO QAM HUGO Stop: 01/18/22 08:59 Last Admin: 12/19/21 08:11 Dose: 40 mg Documented By: RAVEN Metoprolol Tartrate (Metoprolol Tartrate 50 Mg Tab) 50 mg PO BID HUGO Stop: 01/18/22 08:59 Last Admin: 12/19/21 08:11 Dose: 50 mg Documented By: RAVEN Morphine Sulfate (Morphine Sulfate 4 Mg/Ml 1 Ml Carp\Vial) 4 mg IV NOW STA Stop: 12/19/21 01:43 Last Admin: 12/19/21 01:54 Dose: 4 mg Documented By: WARREN Pantoprazole Sodium (Pantoprazole 40 Mg Tab) 40 mg PO NOW STA Stop: 12/19/21 01:48 Last Admin: 12/19/21 01:53 Dose: 40 mg Documented By: WARREN Pantoprazole Sodium (Pantoprazole 40 Mg Tab) 40 mg PO BID STA Stop: 12/19/21 02:04 Last Admin: 12/19/21 02:11 Dose: Not Given Documented By: WARREN Pantoprazole Sodium (Pantoprazole 40 Mg Tab) 40 mg PO BID HUGO Stop: 01/18/22 08:59 Last Admin: 12/19/21 08:12 Dose: 40 mg Documented By: RAVEN Psyllium Hydrophilic Mucilloid (Psyllium Or Guar Gum Fiber Powder Packet) 1 pkt PO DAILY HUGO Stop: 01/18/22 08:59 Last Admin: 12/19/21 08:13 Dose: 1 pkt Documented By: RAVEN Triamterene/Hydrochlorothiazide (Triamterene/Hctz 37.5/25mg Tab) 1 tab PO QAM HUGO Stop: 01/18/22 08:59 Last Admin: 12/19/21 08:11 Dose: 1 tab Documented By: RAVEN Medical Decision Making Medical Records Attestation: I reviewed the patient's medical records. Home Medications Current Medication List: was personally reviewed by me Laboratory Data Attestation: I reviewed the patient's lab results. Result diagrams: 12/18/21 22:22 12/18/21 22:22 Lab Results 12/18/21 12/18/21 12/18/21 Range/Units 22:22 22:22 22:48 WBC 10.64 (4.8-10.8) K/ul RBC 4.61 (3.93-5.22) M/uL Hgb 13.6 (12.0-16.0) g/dl Hct 40.3 (34.1-44.9) % MCV 87.4 (80.0-100.0) fL MCH 29.5 (25.0-34.0) pg MCHC 33.7 (32.0-36.0) g/dL RDW Std Deviation 41.5 (36.4-46.3) fL RDW Coeff of Radha 13.0 (11.5-14.5) % Plt Count 225 (130-400) K/uL MPV 10.6 (9.4-12.3) fL Immature Gran % (Auto) 0.7 % Neut % (Auto) 72.9 % Lymph % (Auto) 17.0 % Otoe % (Auto) 6.2 % Eos % (Auto) 2.4 % Baso % (Auto) 0.8 % Neut # (Auto) 7.76 H (1.4-6.5) K/uL Lymph # (Auto) 1.81 (1.2-3.4) K/uL Otoe # (Auto) 0.66 (0.24-0.82) K/uL Eos # (Auto) 0.26 (0-0.50) K/uL Baso # (Auto) 0.08 (0-0.2) K/uL Immature Gran # (Auto) 0.07 H (0.00-0.02) K/uL Sodium 132 L (136-145) mmol/L Potassium 3.8 (3.5-5.1) mmol/L Chloride 98 (98-107) mmol/L Carbon Dioxide 25 (21-32) mmol/L Anion Gap 9 (3-11) BUN 17 (6-23) mg/dl Creatinine 0.87 (0.6-1.2) mg/dl Est Cr Clr Drug Dosing 82.7 ml/min Est GFR ( Amer) 83.9 ml/min Est GFR (Non-Af Amer) 72.4 ml/min BUN/Creatinine Ratio 19.5 (10-20) Glucose 150 H (70-99(Fasting)) mg/dl Calcium 9.7 (8.5-10.1) mg/dl Total Bilirubin 0.6 (0.2-1.0) mg/dl AST 14 (13-39) U/L ALT 19 (7-52) U/L Alkaline Phosphatase 96 (34-104) U/L Troponin I High Sens 2.4 (0-14) pg/ml C-Reactive Protein (0-0.5) mg/dl Total Protein 7.7 (6.0-8.3) gm/dl Albumin 4.5 (3.4-5.0) gm/dl Globulin 3.2 (2.5-4.0) gm/dl Albumin/Globulin Ratio 1.4 (0.9-2) Lipase 20 (11-82) U/L Urine Color Yellow Urine Appearance Clear (Clear) Urine pH 6.5 (4.5-7.5) Ur Specific Irving 1.011 (1.000-1.030) Urine Protein Negative (Negative) Urine Glucose (UA) Negative (Negative) Urine Ketones Negative (Negative) Urine Blood 1+ H (Negative) Urine Nitrite Negative (Negative) Urine Bilirubin Negative (Negative) Urine Urobilinogen Negative (Negative) Ur Leukocyte Esterase Trace H (Negative) Urine WBC (Auto) 5-10 H (0-5) /hpf Urine RBC (Auto) 5-10 H (0-4) /hpf U Hyaline Cast (Auto) 0 (0-5) /lpf U Epithel Cells (Auto) >30 H (0-5) /lpf Urine Bacteria (Auto) 2+ H (Negative) SARS-CoV-2, RNA, NAAT (NEGATIVE) 12/19/21 12/19/21 12/19/21 Range/Units 01:50 01:56 01:56 WBC (4.8-10.8) K/ul RBC (3.93-5.22) M/uL Hgb (12.0-16.0) g/dl Hct (34.1-44.9) % MCV (80.0-100.0) fL MCH (25.0-34.0) pg MCHC (32.0-36.0) g/dL RDW Std Deviation (36.4-46.3) fL RDW Coeff of Radha (11.5-14.5) % Plt Count (130-400) K/uL MPV (9.4-12.3) fL Immature Gran % (Auto) % Neut % (Auto) % Lymph % (Auto) % Otoe % (Auto) % Eos % (Auto) % Baso % (Auto) % Neut # (Auto) (1.4-6.5) K/uL Lymph # (Auto) (1.2-3.4) K/uL Otoe # (Auto) (0.24-0.82) K/uL Eos # (Auto) (0-0.50) K/uL Baso # (Auto) (0-0.2) K/uL Immature Gran # (Auto) (0.00-0.02) K/uL Sodium (136-145) mmol/L Potassium (3.5-5.1) mmol/L Chloride (98-107) mmol/L Carbon Dioxide (21-32) mmol/L Anion Gap (3-11) BUN (6-23) mg/dl Creatinine (0.6-1.2) mg/dl Est Cr Clr Drug Dosing ml/min Est GFR ( Amer) ml/min Est GFR (Non-Af Amer) ml/min BUN/Creatinine Ratio (10-20) Glucose (70-99(Fasting)) mg/dl Calcium (8.5-10.1) mg/dl Total Bilirubin (0.2-1.0) mg/dl AST (13-39) U/L ALT (7-52) U/L Alkaline Phosphatase (34-104) U/L Troponin I High Sens 3.5 (0-14) pg/ml C-Reactive Protein 1.82 H (0-0.5) mg/dl Total Protein (6.0-8.3) gm/dl Albumin (3.4-5.0) gm/dl Globulin (2.5-4.0) gm/dl Albumin/Globulin Ratio (0.9-2) Lipase (11-82) U/L Urine Color Urine Appearance (Clear) Urine pH (4.5-7.5) Ur Specific Irving (1.000-1.030) Urine Protein (Negative) Urine Glucose (UA) (Negative) Urine Ketones (Negative) Urine Blood (Negative) Urine Nitrite (Negative) Urine Bilirubin (Negative) Urine Urobilinogen (Negative) Ur Leukocyte Esterase (Negative) Urine WBC (Auto) (0-5) /hpf Urine RBC (Auto) (0-4) /hpf U Hyaline Cast (Auto) (0-5) /lpf U Epithel Cells (Auto) (0-5) /lpf Urine Bacteria (Auto) (Negative) SARS-CoV-2, RNA, NAAT NEGATIVE (NEGATIVE) Imaging Data Attestation: I personally reviewed and interpreted this imaging study as follows: MDM Narrative Prior records/ancillary studies reviewed. Triage Nursing notes reviewed. Additional history obtained from nursing. The patient's history was concerning for abdominal pain. Differential diagnosis: Etiologies such as appendicitis, diverticulitis, PUD, biliary pathology, UTI, pancreatitis, obstruction, mesenteric ischemia, aortic pathology, infections, inflammatory bowel disease, renal colic, as well as others were entertained. Physical examination findings: As above. ER treatment provided: An order was placed for continuous cardiac monitoring. The monitor shows a rate of 60-100 with a sinus rhythm. IV fluids, Zofran, morphine, GI cocktail, Pepcid On reassessment the patient felt better. Diagnostics interpreted by me: ECG: Ordered for epigastric pain EKG: Normal sinus, T wave inversions in the anterior lateral leads, rate of 101. Impression sinus tachycardia with T wave inversions interpreted by myself I think arrhythmia is unlikely. EKG shows normal sinus rhythm with no interval abnormalities such as QT prolongation or WPW. There are no findings to suggest Brugada syndrome. Cardiac monitoring in the emergency department reveals no tachycardic or bradycardic dysrhythmia. Hypertrophic cardiomyopathy was considered but there are no clear historical elements pointing toward this. EKG is not suggestive. The QRS voltage is not extremely large and there are no suggestive Q waves. The labs revealed normal lipase, negative troponin Imaging studies: CT ABDOMEN & PELVIS Without Contrast: Subtle periduodenal stranding noted including in the pancreaticoduodenal groove. Correlation with pancreatic enzymes to exclude pancreatitis. In the setting of normal pancreatic enzymes, consider a duodenal process including mild duodenitis or peptic ulcer disease Nonobstructive nephrolithiasis noted on the right Incidental note made of hepatosplenomegaly Radiologist: Don Salazar MD Consultation: A consultation was placed with the hospitalist. The case was discussed and diagnostics were reviewed. The patient was evaluated in the ER for further treatment. Exam and history seem consistent with ongoing epigastric pain could be related t o early pancreatitis versus peptic ulcer. Patient still moderate mount of pain. Medicine is consulted. She will be evaluated for possible admission. By the evaluation outlined above emergent etiologies such as appendicitis, diverticulitis, biliary pathology, UTI, obstruction, mesenteric ischemia, aortic pathology, infections, inflammatory bowel disease, renal colic, as well as others were deemed relatively unlikely. The pt informed about the findings as listed above. All questions were answered and pleased with the treatment. The chart was completed utilizing [employer] Speech voice recognition software. Grammatical errors, random word insertions, pronoun errors, and incomplete sentences are an occassional consequence of this system due to software limitations, ambient noise, and hardware issues. Any formal questions or concerns about the content, text, or information contained within the body of this dictation should be directly addressed to the physician preschool teacher's assistant for c larification. Impression & Plan Acute epigastric pain Discharge Plan Visit Data Chief Complaint: Abdominal Pain Stated Complaint: R UPPER ABD PAIN, CHILLS ED Provider: Segundo Leonardo ED Midlevel Provider: Jill Quezada Discharge Problem: Acute epigastric pain Patient Disposition: Admitted As Inpatient Condition: Good Discharge Instructions Interventions: ED Discharge Assessment Last Done: 12/19/21 03:56
[2021-12-19] MEDS ORDERED: MoRPHine SULFATE 4 MG/ML 1 ML CARP\\VIAL IV STA (01:42)
[2021-12-19] MEDS ORDERED: PANTOprazole 40 MG TAB PO STA ×2 (01:47→02:03)
--- NOTE | 2021-12-19 01:58 | History & Physical Report ---
Date of Service December 19, 2021 Assessment & Plan (1) Acute epigastric pain: Plan: This is a 61-year-old female with a history of GERD, hyperlipidemia, hypertension, hypothyroidism, chronic venous insufficiency, internal hemorrhoids who is s/p CCY >30 years ago and presented to [facility] for evaluation of abdominal pain, subsequently found to have evidence of duodenitis on CT-A/P STAT-Rad. Abdominal Pain - Patient reporting gnawing epigastric pain x 4 days that seems postprandial in nature associated with two episodes of nb/nb emesis. - Work-up as follows: - CT-A/P (STAT-Rad): "Subtle periduodenal stranding noted including in the pancreatic duodenal groove ... Nonobstructive nephrolithiasis noted on the right. Incidental note made of hepatosplenomegaly." - No evidence of elevated lipase, leukocytosis, transaminitis - Noted that patient is on ASA 81 and meloxicam daily - Troponin negative; ECG with some TWAs in the anterior leads compared to 2015 study, though unlikely acute - Primarily suspect that symptoms are gastroduodenal in origin - likely PUD, also possibly erosive gastritis or a viral gastroenteritis. Lower suspicion for developing pancreatitis, hepatobiliary source. No evidence on imaging of vascular etiology. - Initiate pantoprazole 40mg b.i.d. HUGO - PRN: famotidine, Maalox, GI cocktail - Hold meloxicam and ASA 81 for now - If no improvement over several weeks or intermittent development of severe pain while here, consider GI consult for EGD (2) Hypothyroidism: Plan: Hypothyroidism - Continue levothyroxine (3) Hypertension: Plan: HTN / HLD / History of Chest Pain - History of chest pain noted, for which she follows with Dr. Gomez. Stress Test performed in 07/2018 suggestive of possible PDA disease. Improved with BB - Continue lisinopril, metoprolol, HCTZ-triameterene - Continue atorvastatin - Hold ASA 81 (4) Gastroesophageal reflux disease: Plan: GERD - History noted. Start scheduled PPI as above Plan Code: Full Dispo: MedSurg PPX: SCDs Diet: AAT History of Present Illness Primary Care Provider: Litzy Epperson DO This is a 61-year-old female with a history of GERD, hyperlipidemia, hypertension, hypothyroidism, chronic venous insufficiency, internal hemorrhoids who presented to [facility] for evaluation of abdominal pain. Patient reports that she was in her normal health up until about 4 days ago when she began developing this epigastric abdominal pain. She describes that over the last 4 days it has presented the same: She will wake up feeling fine, eat her breakfast and feel okay, and then eat her lunch and shortly thereafter dev eloped a gnawing, epigastric pain that is quite severe in nature. She says that the intensity waxes and wanes thereafter, but does not really go away until she goes to sleep. She denies any heartburn during this. She does say that she vomited twice over the last 2 days as a result of this pain. She denies any changes in bowel movements. She does endorse chills, but denies subjective fevers and night sweats. She does follow with Dr. Gomez for occasional, chronic chest painshe describes that this is completely different than that, and her chest pain does not become any worse over the past several days. She denies any shortness of breath. Medications reviewed and include aspirin, atorvastatin, lisinopril, meloxicam, metoprolol, potassium chloride, Synthroid, hydrochlorothiazide-triamterene. She denies any use of [id number] NSAIDs. She denies any use of alcohol or tobacco products. In the ED, patient was found to be hypertensive to 176/97, borderline tachycardic at 99. Afebrile. CBC without appreciable leukocytosis, mild hyponatremia 132 in the setting of mild hyperglycemia 150, normal LFTs, negative high-sensitivity troponin, lipase normal 20. Urinalysis demonstrating 1+ blood with trace leuk esterase, 5-10 urine WBCs and RBCs, 2+ bacteria in the setting of over [address]-A/P STAT-Rad: " Subtle periduodenal stranding noted including in the pancreatic duodenal groove. Correlation with pancreatic enzymes to exclude pancreatitis. In the setting of normal pancreatic enzymes, consider a duodenal process including mild duodenitis or peptic ulcer disease. Nonobstructive nephrolithiasis noted on the right. Incidental note made of hepatosplenomegaly." ECG demonstrating T wave abnormalities in the anterior leads, compared to 2015 study did appear to improve in the lateral leads. She was given morphine, NSS, famotidine, and Maalox. At the time my interview, she reports feeling much better compared to when she came in. Allergies Allergy/AdvReac Type Severity Reaction Status Date / Time Iodinated Contrast Media Allergy Intermediate HIVES Verified 12/18/21 23:46 metronidazole Allergy Intermediate GI SYMPTOMS Verified 12/18/21 23:46 Penicillins Allergy Intermediate HIVES Verified 12/18/21 23:46 Home Medications Medication Instructions Recorded Confirmed Type psyllium 1 packet PO DAILY 01/07/20 12/18/21 History atorvastatin 10 mg tablet 10 mg PO PM #90 tabs 02/12/21 12/18/21 Rx aspirin 81 mg tablet,delayed 81 mg PO QAM #90 tabs 06/05/21 12/18/21 Rx release potassium chloride 20 mEq 20 meq PO DAILY #90 tabs 10/22/21 12/18/21 Rx tablet,extended release lisinopril 40 mg tablet 40 mg PO QAM #90 tabs 11/01/21 12/18/21 Rx triamterene 37.5 1 tab PO QAM #90 tabs 11/07/21 12/18/21 Rx mg-hydrochlorothiazide 25 mg tablet metoprolol tartrate 50 mg tablet 50 mg PO BID #180 tabs 11/19/21 12/18/21 Rx Synthroid 100 mcg tablet 100 mcg PO QAM #90 tabs 12/10/21 12/18/21 Rx (levothyroxine) ciprofloxacin HCl 500 mg tablet 500 mg PO BID #6 tabs 12/19/21 Rx (Cipro) pantoprazole 40 mg tablet,delayed 40 mg PO BID #60 tabs 12/19/21 Rx release Past Med/Surg History Medical History Chronic venous insufficiency Chronic vulvitis Degenerative arthritis of cervical spine Gastroesophageal reflux disease Hx of pleural effusion 2015> pt unaware of details Hyperlipidemia Hypertension Hypothyroidism Internal hemorrhoids Kidney stones Osteoarthritis Surgical History History of cholecystectomy History of tooth extraction S/P D&C (status post dilation and curettage) (2017) D&C/polypectomy, benign pathology Family History Father , age 58 Stroke Coronary heart disease Hypertension Lung cancer Myocardial infarction Ml age 50's S/P CABG x 3 Mother Hypertension Sister Hypertension Brother Hypertension Brother Hypertension Social History Smoking Status: Never smoker Second Hand Exposure: No; Hx Alcohol Use: No Hx Substance Use: No Preferred Language: Portuguese Communication Ability: Effective Visual Impairment: No Limitations Hearing Ability: Normal Hadoop Developer Required: No Beliefs That Will Affect Care: None marital status: Current Living Situation: Spouse Current Living Situation Comment: lives w/ child current occupational status: unemployed How many Children do You have: 1 Feels Safe at Home: Yes Childhood Exposure to Second-Hand Smoke: No caffeine: Yes (coffee 1 cup per day.) during the past year weight has: remained stable Dental Care, Regularly: No Physical Activity Frequency: Does not Exercise Seatbelt Use: always Sunscreen Use: No Assistive Devices: None Review of Systems Review of Systems: as per HPI Physical Exam Physical Exam: General: 61-year old female who is alert, oriented, and appears in no acute distress. HEENT: NCAT. - Eyes - Sclera are white, anicteric, and without injection. - Mouth - MMM - Neck - supple, no appreciable JVD Cardiac: Normal rate and regular rhythm; S1 and S2 present with no murmurs, rubs, or gallops. Pulmonary: Good respiratory effort with symmetric expansion of the chest. No use of accessory muscles. Lungs were clear to auscultation bilaterally with no crackles or wheezes. Abdominal: Normoactive bowel sounds. Abdomen was soft, nondistended, and with moderate TTP in the epigastrium. CCY scar is well healed. Extremities: Upper and lower extremities are warm and well perfused. Mild peripheral edema in the lower extremities bilaterally with venous insufficiency changes noted. Psych: Well-developed, well-nourished, appropriately dressed for occasion. Behavior is cooperative and appropriate. Affect is WNL. Insight is appropriate. Results & Data Results & Data ([facility]) Vital Signs (Past 12 Hours) Vital Signs Temp Pulse Pulse Resp BP BP Pulse Ox 12/19/21 00:14 89 18 161/91 H 100 12/18/21 22:43 90 18 147/87 H 12/18/21 21:31 36.9 C 99 H 16 176/97 H 99 O2 Del Method 12/19/21 00:14 Room Air 12/18/21 22:43 12/18/21 21:31 Room Air Supervising Physician Co-Signing Physician Notes Patient seen and examined, chart reviewed, case discussed with Dr. Dumont and I agree with the assessment and plan as above Resident Activity Tracking Resident Involvement: Resident Care Provided Care Provided: Adult [facility]
[2021-12-19] MEDS ORDERED: ONDANSETRON INJ 2 MG/ML 2 ML VIAL IV PRN (02:00)
[2021-12-19] MEDS ORDERED: ACETAMINOPHEN 325 MG TAB PO PRN (02:00)
[2021-12-19] MEDS ORDERED: ALUMINUM/MAGNESIUM SUSP 30 ML UDC PO PRN (02:00)
[2021-12-19] MEDS ORDERED: ALUMINUM/MAGNESIUM SUSP 72 ML, LIDOCAINE VISCOUS 2% SOLN 24 ML, BARCODE IDENTIFIER 1 EACH PO PRN (05:46)
[2021-12-19] MEDS ORDERED: FAMOTIDINE 40 MG TABLET PO PRN (05:46)
[2021-12-19] MEDS ORDERED: LEVOTHYROXINE SODIUM 100 MCG TABLET PO SCH (06:30)
[2021-12-19] MEDS ORDERED: METOPROLOL TARTRATE 50 MG TAB PO SCH (09:00)
[2021-12-19] MEDS ORDERED: TRIAMTERENE/HCTZ 37.5/25MG TAB PO SCH (09:00)
[2021-12-19] MEDS ORDERED: PANTOprazole 40 MG TAB PO SCH (09:00)
[2021-12-19] MEDS ORDERED: lisinopril 40 MG TAB PO SCH (09:00)
[2021-12-19] MEDS ORDERED: PSYLLIUM or GUAR GUM FIBER POWDER PACKET PO SCH (09:00)
--- NOTE | 2021-12-19 09:00 | CT Scan Report ---
ABDOMEN AND PELVIS CT WITHOUT CONTRAST CT DOSE: 859.28 mGy.cm HISTORY: Acute severe epigastric abdominal pain severe epi pain TECHNIQUE: Multiaxial CT images of the abdomen and pelvis were performed without contrast. A dose lo wering technique was utilized adhering to the principles of ALARA. COMPARISON STUDY: CT abdomen and pelvis 02/10/2015 FINDINGS: Mild left hemidiaphragmatic elevation. Subsegmental bibasilar atelectasis/scarring. No pneu matosis or pneumoperitoneum. Hepatosplenomegaly. The spleen measures up to 13.5 cm in length. The edgardo er measures up to 20 cm. Mild hepatic steatosis. No hepatic mass identified or evidence of cirrhosis. Adrenal glands are within normal limits. The gallbladder appears surgically absent. Mild to moderate atrophy of the pancreas. Inflammatory stranding surrounds the proximal duodenum and extends into the pancreaticoduodenal groove. Mild associated duodenal wall thickening. There is no bowel obstruction. Mild colonic fecal retention. Normal appendix. Small fat filled umbilical hernia. Punctate nonobstructing calculus of the inferior pole left kidney. Nonobstructing 5 mm calculus of th e inferior pole right kidney. No ureteral calculi or hydronephrosis. Unremarkable urinary bladder, ut erus and adnexa. Indeterminate 2.3 cm presacral mixed attenuating ovoid lesion on image 289 previousl y measured 1.6 cm. Atherosclerosis of the aorta. No lymphadenopathy identified. No acute fracture. IMPRESSION: 1. Wall thickening of the proximal duodenum with adjacent inflammatory stranding is suggestive of a n onspecific duodenitis versus peptic ulcer disease. 2. Inflammatory stranding extends into the pancreaticoduodenal groove, likely secondary to the aforem entioned duodenal changes. Correlate with lipase to exclude acute pancreatitis. 3. No bowel obstruction. Normal appendix. 4. Hepatosplenomegaly with hepatic steatosis. 5. Nonobstructing bilateral nephrolithiasis. 6. Additional findings as above. ACT 112: Negative or not required by law. The above report was generated using voice recognition software. It may contain grammatical, syntax o r spelling errors. Electronically signed by: Juan Jose Baig M.D. 12/19/2021 8:59 AM
--- NOTE | 2021-12-19 09:49 | Hospitalist Progress Note ---
Date of Service December 19, 2021 Assessment & Plan (1) Acute epigastric pain: Plan: This is a 61-year-old female with a history of GERD, hyperlipidemia, hypertension, hypothyroidism, chronic venous insufficiency, internal hemorrhoids who is s/p Cholecystectomy >30 years ago and presented to [facility] for evaluation of abdominal pain, subsequently found to have evidence of duodenitis and abnormal ua Abdominal Pain - Patient reporting gnawing epigastric pain x 4 days that seems postprandial in nature associated with two episodes of nb/nb emesis. - Work-up as follows: - CT-A/P (STAT-Rad): "Subtle periduodenal stranding noted including in the pancreatic duodenal groove ... Nonobstructive nephrolithiasis noted on the right. Incidental note made of hepatosplenomegaly." - No evidence of elevated lipase, leukocytosis, transaminitis - Noted that patient is on ASA 81 and meloxicam daily - Troponin negative; ECG with some TWAs in the anterior leads compared to 2015 study, though unlikely acute - Primarily suspect that symptoms are gastroduodenal in origin - likely PUD, also possibly erosive gastritis or a viral gastroenteritis. Lower suspicion for developing pancreatitis, hepatobiliary source. No evidence on imaging of vascular etiology. - Initiate pantoprazole 40mg b.i.d. HUGO - PRN: famotidine, Maalox, GI cocktail - Hold meloxicam and ASA 81 for now - If no improvement over several weeks or intermittent development of severe pain while here, consider GI consult for EGD (2) Hypothyroidism: Plan: Hypothyroidism - Continue levothyroxine (3) Hypertension: Plan: HTN / HLD / History of Chest Pain - History of chest pain noted, for which she follows with Dr. Gomez. Stress Test performed in 07/2018 suggestive of possible PDA disease. Improved with BB - Continue lisinopril, metoprolol, HCTZ-triameterene - Continue atorvastatin - Hold ASA 81 (4) Gastroesophageal reflux disease: Plan: GERD - History noted. Start scheduled PPI as above Plan Code: Full Dispo: MedSurg PPX: SCDs Diet: AAT Admission and Anticipated Discharge Date Admission Date: December 19, 2021 Results & Data Results & Data ([facility]) Vital Signs (Past 12 Hours) Vital Signs Temp Pulse Resp BP Pulse Ox O2 Del Method 12/19/21 07:41 97.9 F 88 18 135/78 96 Room Air 12/19/21 04:37 98.2 F 12/19/21 04:35 98.2 F 101 H 20 159/92 H 96 Room Air 12/19/21 03:02 93 H 16 169/84 H 97 Room Air 12/19/21 01:52 98 H 14 171/107 H 99 Room Air 12/19/21 00:14 89 18 161/91 H 100 Room Air 12/18/21 22:43 90 18 147/87 H PG Care Time/CCT Total # of Minutes Spent Total Time Spent with Patient: Total time spent is greater than 50% in coordination of care (as documented) at patient's floor/unit and/or counseling patient: Coding Diagnoses Acute epigastric pain R10.13 Hypothyroidism E03.9 Hypertension I10 Gastroesophageal reflux disease K21.9
--- NOTE | 2021-12-19 12:09 | Electrocardiogram Report ---
Test Reason : Blood Pressure : / mmHG Vent. Rate : 101 BPM Atrial Rate : 101 BPM P-R Int : 140 ms QRS Dur : 080 ms QT Int : 334 ms P-R-T Axes : 044 054 031 degrees QTc Int : 433 ms Poor data quality, interpretation may be adversely affected Sinus tachycardia Nonspecific ST and T wave abnormality Abnormal ECG When compared with ECG of 19-NOV-2014 19:17, Nonspecific T wave abnormality, improved in Lateral leads Confirmed by Tuan Blackwell ([id number]) on 12/19/2021 12:09:29 PM Referred By: REFERRED SELF Confirmed By:Tuan Blackwell
--- NOTE | 2021-12-19 20:05 | Discharge Summary ---
Date of Service December 19, 2021 Admission HPI Per Admitting Provider This is a 61-year-old female with a history of GERD, hyperlipidemia, hypertension, hypothyroidism, chronic venous insufficiency, internal hemorrhoids who presented to [facility] for evaluation of abdominal pain. Patient reports that she was in her normal health up until about 4 days ago when she began developing this epigastric abdominal pain. She describes that over the last 4 days it has presented the same: She will wake up feeling fine, eat her breakfast and feel okay, and then eat her lunch and shortly thereafter developed a gnawing, epigastric pain that is quite severe in nature. She says that the intensity waxes and wanes thereafter, but does not really go away until she goes to sleep. She denies any heartburn during this. She does say that she vomited twice over the last 2 days as a result of this pain. She denies any changes in bowel movements. She does endorse chills, but denies subjective fevers and night sweats. She does follow with Dr. Gomez for occasional, chronic chest painshe describes that this is completely different than that, and her chest pain does not become any worse over the past several days. She denies any shortness of breath. Medications reviewed and include aspirin, atorvastatin, lisinopril, meloxicam, metoprolol, potassium chloride, Synthroid, hydrochlorothiazide-triamterene. She denies any use of [id number]-rjr-[id number] NSAIDs. She denies any use of alcohol or tobacco products. In the ED, patient was found to be hypertensive to 176/97, borderline tachycardic at 99. Afebrile. CBC without appreciable leukocytosis, mild hyponatremia 132 in the setting of mild hyperglycemia 150, normal LFTs, negative high-sensitivity troponin, lipase normal 20. Urinalysis demonstrating 1+ blood with trace leuk esterase, 5-10 urine WBCs and RBCs, 2+ bacteria in the setting of over [address]-A/P STAT-Rad: " Subtle periduodenal stranding noted including in the pancreatic duodenal groove. Correlation with pancreatic enzymes to exclude pancreatitis. In the setting of normal pancreatic enzymes, consider a duodenal process including mild duodenitis or peptic ulcer disease. Nonobstructive nephrolithiasis noted on the right. Incidental note made of hepatosplenomegaly." ECG demonstrating T wave abnormalities in the anterior leads, compared to 2015 study did appear to improve in the lateral leads. She was given morphine, NSS, famotidine, and Maalox. At the time my interview, she reports feeling much better compared to when she came in. Principal Diagnosis gastritis uti poa Discharge Exam The patient appeared stable Vital signs as documented. Lungs are clear to auscultation and appear unlabored Cardiac exam, Rhythm is regular.. No murmurs, rubs or gallops. Abdominal exam reveals normal bowel sounds, soft non tender, no masses Extremities are nonedematous and both pedal pulses are normal. Neurologic exam is alert and oriented, no focal loss of strength or sensation Skin is without bruises or rashes Psychologically is without concerns for anxiety or depression. Discharge Data Allergies Allergy/AdvReac Type Severity Reaction Status Date / Time Iodinated Contrast Media Allergy Intermediate HIVES Verified 12/18/21 23:46 metronidazole Allergy Intermediate GI SYMPTOMS Verified 12/18/21 23:46 Penicillins Allergy Intermediate HIVES Verified 12/18/21 23:46 Consultations 12/19/21 01:42 ED Decision to Admit Stat Ordered Studies 12/18/21 22:32 CT abd pelvis wo con Urgent Hospital Course (1) Acute epigastric pain: This is a 61-year-old female with a history of GERD, hyperlipidemia, hypertension, hypothyroidism, chronic venous insufficiency, internal hemorrhoids who is s/p Cholecystectomy >30 years ago and presented to [facility] for evaluation of abdominal pain, subsequently found to have evidence of duodenitis and abnormal ua Abdominal Pain-resolved - Work-up as follows: - CT-A/P (STAT-Rad): "Subtle periduodenal stranding noted including in the pancreatic duodenal groove ... Nonobstructive nephrolithiasis noted on the right. Incidental note made of hepatosplenomegaly." - No evidence of elevated lipase, leukocytosis, transaminitis - Noted that patient is on ASA 81 and meloxicam daily - Troponin negative; ECG with some TWAs in the anterior leads compared to 2015 study, though unlikely acute - Primarily suspect that symptoms are gastroduodenal in origin - likely PUD, - Initiate pantoprazole 40mg b.i.d. HUGO - - Hold meloxicam ASA 81 for now - consider GI consult for EGD (2) Hypothyroidism: Hypothyroidism - Continue levothyroxine (3) Hypertension: HTN / HLD / History of Chest Pain - History of chest pain noted, for which she follows with Dr. Gomez. Stress Test performed in 07/2018 suggestive of possible PDA disease. Improved with BB - Continue lisinopril, metoprolol, HCTZ-triameterene - Continue atorvastatin - Hold ASA 81 (4) Gastroesophageal reflux disease: GERD - History noted. Start scheduled PPI as above Total Time Total Time Spent Total Time Spent (In Minutes): It required greater than 30 minutes to prepare this patient for discharge Discharge Plan Discharge Items Patient Disposition: Home - Self-Care Reason For Visit: ABDOMINAL PAIN Discharge Diagnosis: abdominal pain duodenitis urinary tract infection Condition on Discharge: Good Activity: Resume your previous activity Non-emergency contact: Primary Care Provider Call non-emergency contact if: your symptoms worsen Follow-up/Referrals: Litzy Epperson DO [Primary Care Provider] - 12/27/21 10:20 am Diet: Regular Diet Comment: slowly advance you diet from bland foods to regular diet Addtl Attending Provider Instructions: please keep on a bland soft diet, and advance your diet as you can be able take your medications until complete follow up with your family doctor next week avoid foods on hand out that may irritate your stomach Pending Studies at Discharge: Yes Studies:: final urine culture Stand-Alone Forms: My [employer], Smoking Cessation Medications and DC Order Prescriptions: New pantoprazole 40 mg Tablet,Delayed Release (Dr/Ec) 40 mg PO BID Qty: 60 0RF ciprofloxacin HCl [Cipro] 500 mg tablet 500 mg PO BID Qty: 6 0RF Continued atorvastatin 10 mg tablet 10 mg PO PM Qty: 90 3RF aspirin 81 mg tablet,delayed release (DR/EC) 81 mg PO QAM Qty: 90 2RF potassium chloride 20 mEq tablet extended release 20 meq PO DAILY Qty: 90 1RF lisinopril 40 mg tablet 40 mg PO QAM Qty: 90 1RF triamterene-hydrochlorothiazid 37.5-25 mg tablet 1 tab PO QAM Qty: 90 1RF levothyroxine [Synthroid] 100 mcg tablet 100 mcg PO QAM Qty: 90 1RF Rx Instructions: Needs to be Brand name medication. psyllium Packet 1 packet PO DAILY Rx Instructions: mix into at least 8 oz of water or juice before administering metoprolol tartrate 50 mg tablet 50 mg PO BID Qty: 180 3RF Discontinued meloxicam [Mobic] 15 mg tablet 15 mg PO DAILY PRN (Reason: pain) Qty: 30 3RF Discharge Orders: Discharge Order (Routine); Ordered 12/19/21 Ordered By: Jourdan Gutierrez/Other Patient Handouts: Soft Mingo Diet Dc Admission Data Admit Date/Time: 12/19/21 02:00 Attending Provider: Jourdan Eason Admit Provider: Jeff Dumont Primary Care Provider: Litzy Epperson Other Providers: Ruby Aguila Other Interventions: Discharge Summary Assessment (RN) Last Done: 12/19/21 16:16 Coding Level of Care Code D/C DAY MANAGEMENT >30 MINS Diagnoses Acute epigastric pain R10.13 Hypothyroidism E03.9 Hypertension I10 Gastroesophageal reflux disease K21.9
[2021-12-19] MEDS ORDERED: ATORVASTATIN 10 MG TAB PO SCH (21:00)
--- NOTE | 2021-12-19 21:14 | Billing Data ---
Date of Service December 19, 2021 Coding Level of Care Code 96593 Initial Inpt Care Lvl 2
== END 2021-12-19 17:37 | disposition home or self-care (01) ==
LOC: ED 21:23 → INTOOBSV 12-19 02:00 → SUATTDRO 12-19 02:00 → 2W 12-19 02:00